=== PATIENT | male | born 1940 | race Caucasian/White ===

== ENCOUNTER 2024-10-31 17:02 | Inpatient (IN) | payer MEDICARE ==
[~2024-10-31] VITALS: Ht 172.7 cm; Wt 106.6 kg
[~2024-10-31 17:02] MED LIST: ACET325T53 PO; ALBU2.5V38 IH; ATOR80TA PO; LORA-259 PO; METO25TA20 PO; PANT40TA49 PO; PSYL0.525 PO; QUET25TA PO; SERT100T12 PO; TAMS-12 PO
[2024-10-31 17:32] VITALS: O2SAT 93
[2024-10-31] MEDS: ALBUTEROL FS 2.5 MG/3 ML VIAL.NEB NEB ONE ×2 (17:32→18:03)
[2024-10-31] MEDS: IPRATROPIUM NEB FS 0.5 MG/2.5 ML AMPUL.NEB NEB ONE ×2 (17:32→18:03)
[2024-10-31] MEDS ORDERED: ALBUTEROL FS 2.5 MG/3 ML VIAL.NEB ONE ×2 (17:34→18:04)
[2024-10-31] MEDS ORDERED: IPRATROPIUM NEB FS 0.5 MG/2.5 ML AMPUL.NEB ONE ×2 (17:34→18:05)
[2024-10-31 17:37] LABS: PLATELET COUNT (AUTO) 146 K/uL (150-450); RED BLOOD CELL COUNT(AUTO) 5.03 MIL/uL (4.5-6.0); RED CELL DISTRIBUTION WIDTH 13.6 % (11.5-15.0); WHITE BLOOD COUNT (AUTO) 6.6 K/uL (4.3-11.0)
[2024-10-31 17:47] VITALS: O2SAT 93
[2024-10-31 17:53] LABS: CALCIUM, SERUM 9.1 mg/dL (8.5-10.1); CREATININE 0.7 mg/dL (0.6-1.3); SODIUM SERUM 143 mmol/L (136-145); UREA NITROGEN, BLOOD 9 mg/dL (7-18)
[2024-10-31 18:03] VITALS: O2SAT 91
[2024-10-31 18:05] LABS: ASPARTATE AMINOTRANSFERASE 46 U/L (15-37); TOTAL PROTEIN, SERUM 6.2 g/dL (6.4-8.2)
[2024-10-31 18:19] VITALS: O2SAT 92
[2024-10-31] MEDS ORDERED: IV NS 0.9% 250 ML IV ONE (18:41)
[2024-10-31] MEDS ORDERED: IOHEXOL-350 100 ML VIAL IV ONE (18:41)
[2024-10-31] MEDS ORDERED: AZITHROMYCIN 250 MG TABLET ONE (19:06)
[2024-10-31] MEDS: FUROSEMIDE 40 MG/4 ML VIAL IV ONE (19:15)
[2024-10-31] MEDS: AZITHROMYCIN 250 MG TABLET PO ONE (19:15)
[2024-10-31] MEDS ORDERED: ONDANSETRON 4 MG TAB.RAPDIS ONE (20:51)
[2024-10-31] MEDS: LORAZEPAM 1 MG TABLET PO ONE (21:02)
[2024-10-31] MEDS ORDERED: LORAZEPAM 1 MG TABLET ONE (21:02)
[2024-10-31] MEDS: ENOXAPARIN SODIUM 40 MG/0.4 ML DISP.SYRIN SQ SCH (22:30)
[2024-10-31] MEDS ORDERED: Z GUARD REMEDY 4 OZ OINT TP PRN (22:30)
[2024-10-31] MEDS ORDERED: MAGNESIUM HYDROXIDE 30 ML UDC PO PRN (22:30)
[2024-10-31] MEDS ORDERED: MAG HYDROX/AL HYDROX/SIMETH 30 ML UDC PO PRN (22:30)
[2024-10-31] MEDS ORDERED: IPRATROPIUM NEB FS 0.5 MG/2.5 ML AMPUL.NEB NEB SCH (22:30)
[2024-10-31] MEDS ORDERED: LEVALBUTEROL HCL NEB 1.25 MG/0.5 ML VIAL.NEB NEB SCH (22:30)
[2024-10-31] MEDS ORDERED: ONDANSETRON HCL/PF 4 MG/2 ML VIAL IVP PRN (22:30)
[2024-10-31] MEDS ORDERED: AMIODARONE 150 MG/3 ML VIAL IV ONE ×2 (23:00→23:05)
[2024-10-31] MEDS: AMIODARONE 150 MG in IV D5W 100 ML IV ONE (23:10)
[2024-10-31] MEDS: AMIODARONE 450 MG in IV D5W 241 ML IV PRN (23:25)
[2024-11-01] MEDS ORDERED: ENOXAPARIN SODIUM 40 MG/0.4 ML DISP.SYRIN SQ ONE (00:08)
[2024-11-01] MEDS ORDERED: OLANZAPINE 10 MG VIAL IM ONE (01:20)
[2024-11-01] MEDS: OLANZAPINE 10 MG VIAL IM ONE ×2 (01:22→15:21)
[2024-11-01 06:04] LABS: PLATELET COUNT (AUTO) 147 K/uL (150-450); RED BLOOD CELL COUNT(AUTO) 5.06 MIL/uL (4.5-6.0); RED CELL DISTRIBUTION WIDTH 13.7 % (11.5-15.0); WHITE BLOOD COUNT (AUTO) 10.6 K/uL (4.3-11.0)
[2024-11-01 06:12] LABS: CALCIUM, SERUM 9.2 mg/dL (8.5-10.1); CREATININE 1.0 mg/dL (0.6-1.3); PHOSPHORUS 2.9 mg/dL (2.5-4.9); SODIUM SERUM 142.0 mmol/L (136-145); UREA NITROGEN, BLOOD 10.0 mg/dL (7-18)
[2024-11-01] MEDS ORDERED: RISP0.2515 PO (07:48)
[2024-11-01] MEDS ORDERED: MAGN400O6 PO (07:48)
[2024-11-01] MEDS ORDERED: HYDR-3973 PO (07:48)
[2024-11-01] MEDS ORDERED: PSYL1PAC8 PO (07:48)
[2024-11-01] MEDS ORDERED: APIX2.5T PO (07:48)
[2024-11-01] MEDS ORDERED: HALO5TAB8 PO (07:48)
[2024-11-01] MEDS ORDERED: IPRA3AMP23 IH (07:48)
[2024-11-01] MEDS ORDERED: MAG30ORA PO (07:48)
[2024-11-01] MEDS: POTASSIUM CHLORIDE 20 MEQ TAB.PRT.SR PO SCH ×2 (09:00→14:06)
[2024-11-01 10:00] VITALS: BP 129/87; TEMP 97.1; O2SAT 96
[2024-11-01 12:00] VITALS: BP 123/83; TEMP 97.8; O2SAT 94
[2024-11-01] MEDS: IPRATROPIUM BROMIDE 14 GM INHALER (or 12.9 GM) IH SCH (12:00)
[2024-11-01 13:28] LABS: CALCIUM, SERUM 8.7 mg/dL (8.5-10.1); CREATININE 0.9 mg/dL (0.6-1.3); SODIUM SERUM 142.0 mmol/L (136-145); UREA NITROGEN, BLOOD 10.0 mg/dL (7-18)
[2024-11-01] MEDS: DOXYCYCLINE HYCLATE (100 MG) 100 MG TABLET PO SCH (13:39)
[2024-11-01] MEDS: PANTOPRAZOLE 40 MG VIAL IV SCH (13:39)
[2024-11-01] MEDS: dexaMETHasone SOD PHOSPHATE 10 MG/ML VIAL IV SCH (13:41)
[2024-11-01 16:00] VITALS: BP 131/101; TEMP 98.4; O2SAT 94
[2024-11-01 16:45] VITALS: BP 174/71; TEMP 97.9; O2SAT 94
[2024-11-01] MEDS: hydrALAZINE HCL IV 20 MG VIAL IV PRN (16:59)
[2024-11-01] MEDS: ACETAMINOPHEN 325 MG TABLET PO PRN (16:59)
[2024-11-01] MEDS ORDERED: AZITHROMYCIN 250 MG TABLET PO SCH (18:30)
[2024-11-01] MEDS: CEFTRIAXONE 1 G in IV D5W 50 ML IV SCH (19:17)
[2024-11-01 20:00] VITALS: BP 152/102; TEMP 99.2; O2SAT 97
[2024-11-01] MEDS: QUETIAPINE FUMARATE 25 MG TABLET PO SCH (22:03)
[2024-11-01] MEDS: POTASSIUM CHLORIDE 20 MEQ TAB.PRT.SR PO ONE (22:04)
[2024-11-02] VITALS (13 sets, daily range): BP systolic 129–155; BP diastolic 78–124; TEMP 97–98.6; O2SAT 90–98
[2024-11-02] MEDS: LORAZEPAM INJ 2 MG/ML VIAL IM ONE (02:20)
[2024-11-02 08:24] LABS: PLATELET COUNT (AUTO) 168 K/uL (150-450); RED BLOOD CELL COUNT(AUTO) 5.15 MIL/uL (4.5-6.0); RED CELL DISTRIBUTION WIDTH 14.0 % (11.5-15.0); WHITE BLOOD COUNT (AUTO) 10.1 K/uL (4.3-11.0)
[2024-11-02 08:44] LABS: CALCIUM, SERUM 8.8 mg/dL (8.5-10.1); CREATININE 1.1 mg/dL (0.6-1.3); SODIUM SERUM 147.0 mmol/L (136-145); UREA NITROGEN, BLOOD 16.0 mg/dL (7-18)
[2024-11-02] MEDS: PANTOPRAZOLE 40 MG TABLET.DR PO SCH ×2 (09:28→17:59)
[2024-11-02] MEDS ORDERED: ACETAMINOPHEN 325 MG TABLET PO PRN (10:30)
[2024-11-02] MEDS ORDERED: MAG HYDROX/AL HYDROX/SIMETH 30 ML UDC PO PRN (10:30)
[2024-11-02] MEDS ORDERED: MAGNESIUM HYDROXIDE 30 ML UDC PO PRN (10:30)
[2024-11-02] MEDS ORDERED: ALBUTEROL FS 2.5 MG/3 ML VIAL.NEB NEB PRN (10:30)
[2024-11-02] MEDS ORDERED: IPRATROPIUM NEB FS 0.5 MG/2.5 ML AMPUL.NEB NEB PRN (10:30)
[2024-11-02] MEDS: CLOPIDOGREL BISULFATE 75 MG TABLET PO SCH (10:51)
[2024-11-02] MEDS: LORAZEPAM INJ 2 MG/ML VIAL IV ONE (10:51)
[2024-11-02] MEDS: METOPROLOL TARTRATE 25 MG TABLET PO SCH ×2 (10:52→11:00)
[2024-11-02] MEDS: HALOPERIDOL 5 MG TABLET PO PRN (14:02)
[2024-11-02] MEDS: TAMSULOSIN 0.4 MG CAP.SR.24H PO SCH (17:59)
[2024-11-02] MEDS: APIXABAN 2.5 MG TABLET PO SCH (18:01)
[2024-11-02] MEDS: ATORVASTATIN 40 MG TABLET PO SCH (21:15)
[2024-11-03] VITALS: BP 114/65; TEMP 97.3; O2SAT 94
[2024-11-03 04:00] VITALS: BP 122/76; TEMP 97.5; O2SAT 95
[2024-11-03 06:59] LABS: PLATELET COUNT (AUTO) 126 K/uL (150-450); RED BLOOD CELL COUNT(AUTO) 5.40 MIL/uL (4.5-6.0); RED CELL DISTRIBUTION WIDTH 14.1 % (11.5-15.0); WHITE BLOOD COUNT (AUTO) 7.7 K/uL (4.3-11.0)
[2024-11-03 07:07] LABS: CALCIUM, SERUM 8.9 mg/dL (8.5-10.1); CREATININE 1.0 mg/dL (0.6-1.3); SODIUM SERUM 150.0 mmol/L (136-145); UREA NITROGEN, BLOOD 17.0 mg/dL (7-18)
[2024-11-03 08:00] VITALS: BP 143/65; TEMP 98.6; O2SAT 95
[2024-11-03] MEDS: PSYLLIUM SEED 1 PKT PACKET PO SCH (09:38)
[2024-11-03 12:00] VITALS: BP 165/76; TEMP 97.8; O2SAT 96
[2024-11-03] MEDS: NITROGLYCERIN 0.4 MG/TAB BOTTLE SL PRN (14:14)
[2024-11-03 15:39] LABS: ABG BASE EXCESS 3.4 mmol/L (-2.0-3.0); ABG OXYGEN SATURATION 94.7 % (94.0-98.0); ABG PCO2 32.1 mmHg (35.0-48.0); ABG PH 7.518 (7.350-7.450); ABG PO2 68.7 mmHg (83.0-108.0); ABG TOTAL HEMOGLOBIN 16.4 G/dL (13.5-17.5); FLOW, BLOOD GAS 5.00 L/min (0.00-30.00); FRACTIONATED INSPIRED OXYGEN 40.0 %; SITE, ABG RIGHT RADIAL
[2024-11-03 16:00] VITALS: BP 135/89; TEMP 97.6; O2SAT 96
[2024-11-03 20:00] VITALS: BP 120/72; TEMP 97.7; O2SAT 98
[2024-11-04] VITALS: BP 145/90; TEMP 97.7; O2SAT 96
[2024-11-04 04:00] VITALS: BP 122/80; TEMP 97.7; O2SAT 92
[2024-11-04 07:36] LABS: PLATELET COUNT (AUTO) 145 K/uL (150-450); RED BLOOD CELL COUNT(AUTO) 5.00 MIL/uL (4.5-6.0); RED CELL DISTRIBUTION WIDTH 13.8 % (11.5-15.0); WHITE BLOOD COUNT (AUTO) 7.6 K/uL (4.3-11.0)
[2024-11-04 07:47] LABS: CALCIUM, SERUM 8.7 mg/dL (8.5-10.1); CREATININE 0.7 mg/dL (0.6-1.3); PHOSPHORUS 4.1 mg/dL (2.5-4.9); SODIUM SERUM 149.0 mmol/L (136-145); UREA NITROGEN, BLOOD 14.0 mg/dL (7-18)
[2024-11-04 08:00] VITALS: BP 127/74; TEMP 97.7; O2SAT 96
[2024-11-04] MEDS: IV D5W 1,000 ML IV SCH (11:30)
[2024-11-04 12:00] VITALS: BP 104/80; TEMP 98.2; O2SAT 98
[2024-11-04] MEDS: LORAZEPAM 1 MG TABLET PO PRN (12:01)
[2024-11-04 16:00] VITALS: BP 132/83; TEMP 97.9; O2SAT 98
[2024-11-04 20:00] VITALS: BP 115/72; TEMP 97.5; O2SAT 97
[2024-11-05] VITALS: BP 120/70; TEMP 98; O2SAT 97
[2024-11-05 04:00] VITALS: BP 122/60; TEMP 98; O2SAT 97
[2024-11-05 07:58] LABS: CALCIUM, SERUM 8.5 mg/dL (8.5-10.1); CREATININE 0.9 mg/dL (0.6-1.3); PHOSPHORUS 3.0 mg/dL (2.5-4.9); SODIUM SERUM 141.0 mmol/L (136-145); UREA NITROGEN, BLOOD 15.0 mg/dL (7-18)
[2024-11-05 08:00] VITALS: BP 116/73; TEMP 98.1; O2SAT 96
[2024-11-05] MEDS ORDERED: DEXA4TAB PO (08:29)
[2024-11-05] MEDS ORDERED: METO25TA20 PO (08:29)
[2024-11-05] MEDS: HYDROCODONE/APAP 5/325MG TABLET PO PRN (08:43)
[2024-11-05 16:00] VITALS: BP 129/80; TEMP 98; O2SAT 97
[2024-11-05 20:00] VITALS: BP 141/81; TEMP 98.3; O2SAT 97
[2024-11-06 06:00] VITALS: BP 139/80; TEMP 98; O2SAT 97
[2024-11-06] MEDS ORDERED: IV D5W 1,000 ML IV PRN (08:08)
[2024-11-06 08:20] VITALS: BP 135/54; TEMP 97.7; O2SAT 95
[2024-11-06 16:00] VITALS: BP 138/85; TEMP 97.8; O2SAT 95
[2024-11-06 16:23] LABS: CALCIUM, SERUM 8.9 mg/dL (8.5-10.1); CREATININE 0.8 mg/dL (0.6-1.3); SODIUM SERUM 140.0 mmol/L (136-145); UREA NITROGEN, BLOOD 16.0 mg/dL (7-18)
[2024-11-06 17:27] VITALS: BP 138/85
[2024-11-07] MEDS ORDERED: DEXA4TAB PO (08:13)
[2024-11-07] MEDS ORDERED: CLOP75TA15 PO (15:57)
== END 2024-11-06 18:30 | DRG 189 ==
LOC: ER 17:05 → TELE IN 23:11 → TELE-TD 11-01 07:43 → TELE1 11-02 10:30 → MEDSG1 11-05 09:56
PROVIDERS: ATTEND Nurse Practitioner Acute Care
PROC: 05H933Z Insertion of Infusion Device into Right Brachial Vein, Percutaneous Approach (ICD-10-PCS; principal; 2024-11-02)
DX: J96.01 Acute respiratory failure with hypoxia (principal); U07.1 COVID-19; J44.1 Chronic obstructive pulmonary disease with (acute) exacerbation; D68.59 Other primary thrombophilia; E44.1 Mild protein-calorie malnutrition; E66.2 Morbid (severe) obesity with alveolar hypoventilation; E87.0 Hyperosmolality and hypernatremia; I69.351 Hemiplegia and hemiparesis following cerebral infarction affecting right dominant side; G93.40 Encephalopathy, unspecified; R17 Unspecified jaundice; F02.82 Dementia in other diseases classified elsewhere, unspecified severity, with psychotic disturbance; F02.83 Dementia in other diseases classified elsewhere, unspecified severity, with mood disturbance; F02.84 Dementia in other diseases classified elsewhere, unspecified severity, with anxiety; I48.91 Unspecified atrial fibrillation; E78.5 Hyperlipidemia, unspecified; E88.09 Other disorders of plasma-protein metabolism, not elsewhere classified; I10 Essential (primary) hypertension; I25.10 Atherosclerotic heart disease of native coronary artery without angina pectoris; Z86.16 Personal history of COVID-19; Z87.01 Personal history of pneumonia (recurrent); Z79.899 Other long term (current) drug therapy; Z74.01 Bed confinement status; Z68.35 Body mass index [BMI] 35.0-35.9, adult; F39 Unspecified mood [affective] disorder; F29 Unspecified psychosis not due to a substance or known physiological condition; Z66 Do not resuscitate; Z79.01 Long term (current) use of anticoagulants; G30.9 Alzheimer's disease, unspecified; N40.0 Benign prostatic hyperplasia without lower urinary tract symptoms; F41.1 Generalized anxiety disorder
CPT/HCPCS: 36410; 36415; 70450-TC; 71045-TC; 80048-TC; 80076-TC; 83735-TC; 83880; 84100-TC; 84439-TC; 84443-TC; 84484-TC; 85025-TC; 86140-TC; 93307-TC; 94799-TC; A4223; G0378; J0282; J0360; J0696; J1100; J1650; J1938; J2060; J2470; J2919; J3490; J7040; J7050; J7060; J7070; Q0162; Q9967

== ENCOUNTER 2024-11-09 22:41 | Inpatient (IN) | payer MEDICARE ==
[~2024-11-09] VITALS: Ht 180.3 cm; Wt 115.0 kg
[~2024-11-09 22:41] MED LIST changes: -ALBU2.5V38 IH; +APIX2.5T PO; +CLOP75TA15 PO; +DEXA4TAB PO; +HALO5TAB8 PO; +HYDR-3973 PO; +IPRA3AMP23 IH; +MAG30ORA PO; +MAGN400O6 PO; -PSYL0.525 PO; +PSYL1PAC8 PO; -QUET25TA PO; +RISP0.2515 PO; -SERT100T12 PO
[2024-11-09 23:13] LABS: PLATELET COUNT (AUTO) 176 K/uL (150-450); RED BLOOD CELL COUNT(AUTO) 5.06 MIL/uL (4.5-6.0); RED CELL DISTRIBUTION WIDTH 14.0 % (11.5-15.0); WHITE BLOOD COUNT (AUTO) 7.4 K/uL (4.3-11.0)
[2024-11-09 23:20] LABS: CALCIUM, SERUM 8.8 mg/dL (8.5-10.1); CREATININE 0.8 mg/dL (0.6-1.3); SODIUM SERUM 144 mmol/L (136-145); UREA NITROGEN, BLOOD 17 mg/dL (7-18)
[2024-11-09 23:26] LABS: ASPARTATE AMINOTRANSFERASE 28 U/L (15-37); TOTAL PROTEIN, SERUM 5.5 g/dL (6.4-8.2)
[2024-11-10 01:25] LABS: APPEARANCE,URINE CLEAR (CLEAR); BLOOD, URINE NEGATIVE Ery/uL (NEGATIVE); LEUKOCYTE ESTERASE ,URINE TRACE (NEGATIVE); NITRITE, URINE NEGATIVE (NEGATIVE); UGLUCOSE NEGATIVE (NEGATIVE)
[2024-11-10 01:32] LABS: AMPHETAMINE, URINE NEGATIVE (NEGATIVE); BARBITURATE, URINE NEGATIVE (NEGATIVE); BENZODIAZEPINE, URINE NEGATIVE (NEGATIVE); CANNABINOID, URINE NEGATIVE (NEGATIVE); COCCAINE, URINE NEGATIVE (NEGATIVE); OPIATE, URINE NEGATIVE (NEGATIVE)
[2024-11-10 01:44] LABS: ADD URINE CULTURE NO; SQUAMOUS EPITHELIAL CELL,UR 0-2 /HPF (None Seen)
[2024-11-10] MEDS ORDERED: HYDROCODONE/APAP 5/325MG TABLET PO PRN (11:30)
[2024-11-10] MEDS ORDERED: MAG HYDROX/AL HYDROX/SIMETH 30 ML UDC PO PRN (11:30)
[2024-11-10 12:00] VITALS: BP 106/69; TEMP 98.2; O2SAT 100
[2024-11-10] MEDS ORDERED: ALBUTEROL FS 2.5 MG/3 ML VIAL.NEB NEB PRN (12:00)
[2024-11-10] MEDS ORDERED: IPRATROPIUM NEB FS 0.5 MG/2.5 ML AMPUL.NEB NEB PRN (12:00)
[2024-11-10] MEDS: METOPROLOL TARTRATE 25 MG TABLET PO SCH (12:53)
[2024-11-10] MEDS: PANTOPRAZOLE 40 MG TABLET.DR PO SCH (12:54)
[2024-11-10 12:57] VITALS: BP 106/69; TEMP 98.2; O2SAT 100
[2024-11-10 16:00] VITALS: BP 106/73; TEMP 97.7; O2SAT 97
[2024-11-10] MEDS: APIXABAN 2.5 MG TABLET PO SCH (16:05)
[2024-11-10 16:41] VITALS: BP 106/73; TEMP 97.7; O2SAT 97
[2024-11-10] MEDS: TAMSULOSIN 0.4 MG CAP.SR.24H PO SCH (17:34)
[2024-11-10] MEDS: ACETAMINOPHEN 325 MG TABLET PO PRN (19:53)
[2024-11-10 20:00] VITALS: BP 115/66; TEMP 97.6; O2SAT 96
[2024-11-10] MEDS: ATORVASTATIN 40 MG TABLET PO SCH (21:04)
[2024-11-11] MEDS: LORAZEPAM 1 MG TABLET PO PRN (05:29)
[2024-11-11 08:31] VITALS: BP 110/68; TEMP 98.2; O2SAT 96
[2024-11-11] MEDS: CLOPIDOGREL BISULFATE 75 MG TABLET PO SCH (08:41)
[2024-11-11] MEDS: PSYLLIUM SEED 1 PKT PACKET PO SCH (08:41)
[2024-11-11] MEDS ORDERED: Z GUARD REMEDY 4 OZ OINT TP PRN (09:00)
[2024-11-11] MEDS: Z GUARD REMEDY 4 OZ OINT TP SCH (09:40)
[2024-11-11] MEDS: CLOTRIMAZOLE 1% 15 GM TUBE TP SCH (09:41)
[2024-11-11 10:19] LABS: ABG BASE EXCESS 4.1 mmol/L (-2.0-3.0); ABG OXYGEN SATURATION 95.1 % (94.0-98.0); ABG PCO2 38.0 mmHg (35.0-48.0); ABG PH 7.480 (7.350-7.450); ABG PO2 73.7 mmHg (83.0-108.0); ABG TOTAL HEMOGLOBIN 15.7 G/dL (13.5-17.5); FRACTIONATED INSPIRED OXYGEN 21.0 %; SITE, ABG RIGHT RADIAL
[2024-11-11 20:00] VITALS: BP 114/72; TEMP 98.1; O2SAT 96
[2024-11-12 08:00] VITALS: BP 115/82; TEMP 98.6; O2SAT 96
[2024-11-12 11:46] VITALS: BP 127/75
== END 2024-11-12 15:42 | disposition home or self-care (01) | DRG 308 ==
LOC: ER 22:44 → MED 11-10 11:36
PROVIDERS: ADMIT Internal Medicine; ATTEND Internal Medicine
DX: I48.91 Unspecified atrial fibrillation (principal); J96.01 Acute respiratory failure with hypoxia; J44.1 Chronic obstructive pulmonary disease with (acute) exacerbation; E44.0 Moderate protein-calorie malnutrition; F02.83 Dementia in other diseases classified elsewhere, unspecified severity, with mood disturbance; F02.84 Dementia in other diseases classified elsewhere, unspecified severity, with anxiety; D68.59 Other primary thrombophilia; I69.351 Hemiplegia and hemiparesis following cerebral infarction affecting right dominant side; N39.0 Urinary tract infection, site not specified; E66.2 Morbid (severe) obesity with alveolar hypoventilation; G93.49 Other encephalopathy; F02.82 Dementia in other diseases classified elsewhere, unspecified severity, with psychotic disturbance; E86.0 Dehydration; I25.10 Atherosclerotic heart disease of native coronary artery without angina pectoris; R13.10 Dysphagia, unspecified; Z66 Do not resuscitate; F41.9 Anxiety disorder, unspecified; Z20.822 Contact with and (suspected) exposure to COVID-19; E80.6 Other disorders of bilirubin metabolism; N40.0 Benign prostatic hyperplasia without lower urinary tract symptoms; Z74.01 Bed confinement status; I10 Essential (primary) hypertension; G30.9 Alzheimer's disease, unspecified; I73.9 Peripheral vascular disease, unspecified; M19.90 Unspecified osteoarthritis, unspecified site; Z98.890 Other specified postprocedural states; E78.5 Hyperlipidemia, unspecified; E88.09 Other disorders of plasma-protein metabolism, not elsewhere classified; F20.9 Schizophrenia, unspecified; F32.A Depression, unspecified; Z79.01 Long term (current) use of anticoagulants; Z79.51 Long term (current) use of inhaled steroids; Z79.02 Long term (current) use of antithrombotics/antiplatelets; Z87.891 Personal history of nicotine dependence; Z79.899 Other long term (current) drug therapy; Z86.16 Personal history of COVID-19; Z68.35 Body mass index [BMI] 35.0-35.9, adult; Z93.1 Gastrostomy status; F29 Unspecified psychosis not due to a substance or known physiological condition
CPT/HCPCS: 36415; 36600; 71045-TC; 80048-TC; 80076-TC; 81001; 82803-TC; 85025-TC; 87081-TC; 97110-TC; 97116-TC; 97530-TC; G0378; G0480

== ENCOUNTER 2024-11-29 16:21 | Emergency (ER) | payer MEDICARE ==
[~2024-11-29] VITALS: Ht 180.3 cm; Wt 114.8 kg
[~2024-11-29 16:21] MED LIST changes: -HALO5TAB8 PO; -MAGN400O6 PO
[2024-11-29] MEDS ORDERED: ACETAMINOPHEN ES 500 MG TABLET ONE (17:10)
[2024-11-29] MEDS: ACETAMINOPHEN ES 500 MG TABLET PO ONE (17:20)
[2024-11-29] MEDS ORDERED: LORAZEPAM INJ 2 MG/ML VIAL ONE (21:27)
[2024-11-29] MEDS: LORAZEPAM INJ 2 MG/ML VIAL IV ONE (21:29)
[2024-11-29 21:32] VITALS: BP 127/63; TEMP 98; O2SAT 98
== END 2024-11-29 21:32 ==
LOC: ER 16:24
DX: R51.9 Headache, unspecified (principal); R10.A1 Flank pain, right side; E78.5 Hyperlipidemia, unspecified; F03.90 Unspecified dementia, unspecified severity, without behavioral disturbance, psychotic disturbance, mood disturbance, and anxiety; I11.9 Hypertensive heart disease without heart failure; I48.91 Unspecified atrial fibrillation; J44.9 Chronic obstructive pulmonary disease, unspecified; N40.0 Benign prostatic hyperplasia without lower urinary tract symptoms; Z86.73 Personal history of transient ischemic attack (TIA), and cerebral infarction without residual deficits; Z79.899 Other long term (current) drug therapy; Z79.52 Long term (current) use of systemic steroids; Z79.01 Long term (current) use of anticoagulants; W06.XXXA Fall from bed, initial encounter; Y93.89 Activity, other specified; Y92.89 Other specified places as the place of occurrence of the external cause; Y99.8 Other external cause status
CPT/HCPCS: 99285; 72125; 71045; 70450; 74176; J2060